=== PATIENT | male | born 1965 | race Caucasian/White ===

== ENCOUNTER 2023-07-31 08:21 | Inpatient (IN) | payer MEDICAID ==
[2023-07-31] VITALS (9 sets, daily range): BP systolic 128–160; BP diastolic 60–81; PULSE 59–79; RESP 13–22; TEMP 98–98.8
[~2023-07-31] VITALS: Ht 180.3 cm; Wt 149.8 kg
[2023-07-31] MEDS ORDERED: AMLO5TAB88 PO (09:43)
[2023-07-31] MEDS ORDERED: TIOT4MIS2 IH (09:43)
[2023-07-31] MEDS ORDERED: ASPI-1497 PO (09:43)
[2023-07-31] MEDS ORDERED: ATOR-2 PO (09:43)
[2023-07-31] MEDS ORDERED: IPRA4AER IH (09:43)
[2023-07-31] MEDS ORDERED: LIDOCAINE HCL 1% 10 MG/ML 10ML VIAL ONE (10:14)
[2023-07-31] MEDS ORDERED: HEPARIN 1000 UNITS/ML 10ML ONE ×2 (10:14→11:25)
[2023-07-31] MEDS ORDERED: IODIXANOL 320MG/ML 100 ML BOTTLE IV ONE ×2 (10:14→11:50)
[2023-07-31] MEDS ORDERED: FENTANYL CITRATE/PF 50MCG/ML 2ML VIAL ONE (10:50)
[2023-07-31] MEDS ORDERED: MIDAZOLAM HCL 2 MG/2 ML VIAL ONE (10:50)
[2023-07-31] MEDS ORDERED: CLOPIDOGREL 75MG TABLET ONE (11:51)
[2023-07-31] MEDS ORDERED: ASPIRIN 325MG TABLET ONE (11:51)
[2023-07-31] MEDS ORDERED: ACETAMINOPHEN 325MG TABLET PO PRN (12:15)
[2023-07-31] MEDS ORDERED: ATROPINE SULFATE 1MG/10ML SYR IV PRN (12:15)
[2023-07-31] MEDS ORDERED: ONDANSETRON HCL 4MG/2ML INJ IV PRN (12:15)
[2023-07-31] MEDS: AMLODIPINE 5MG TABLET PO SCH (15:33)
[2023-07-31] MEDS ORDERED: ATORVASTATIN CALCIUM 20MG TABLET PO SCH (21:00)
[2023-08-01] VITALS: BP 143/74; PULSE 71; RESP 17; TEMP 98
[2023-08-01 04:00] VITALS: BP 158/81; PULSE 72; RESP 15; TEMP 98.2
[2023-08-01] MEDS ORDERED: HYDRALAZINE 20MG/ML VIAL IV PRN (07:00)
[2023-08-01 08:00] VITALS: BP 134/81; PULSE 77; RESP 19; TEMP 97.8
[2023-08-01] MEDS: AMLODIPINE 5MG TABLET PO SCH (08:11)
[2023-08-01 08:28] LABS: BASOPHILS % 0.5 % (0.0-2.0); EOSINOPHILS % 5.3 % (0.0-5.0); HEMATOCRIT. 42.6 % (42.0-52.0); HEMOGLOBIN. 14.5 g/dL (14.0-18.0); LYMPHOCYTES % 20.7 % (20.0-50.0); MEAN CORPUSCULAR HEMOGLOBIN 30.6 pg (28.0-32.0); MEAN CORPUSCULAR VOLUME 89.9 fL (80.0-94.0); MEAN PLATELET VOLUME 8.3 fl (7.4-10.4); MONOCYTES % 6.3 % (2.0-8.0); NEUTROPHILS % 67.2 % (40.0-76.0); PLATELET 255 x1000/uL (130-400); RED BLOOD CELL COUNT 4.74 mill/uL (4.7-6.1); RED CELL DISTRIBUTION WIDTH 13.6 % (11.6-14.6); WHITE BLOOD COUNT 9.6 x1000/uL (4.5-11.0)
[2023-08-01] MEDS ORDERED: ASPIRIN 325MG TABLET PO SCH (09:00)
[2023-08-01] MEDS ORDERED: CLOPIDOGREL 75MG TABLET PO SCH (09:00)
[2023-08-01 09:16] LABS: INDEX HEMOLYSI 1 (1-3); INDEX ICTERIC 1 (1-4); INDEX LIPEMIC 1 (1-3)
[2023-08-01 09:17] LABS: CALCIUM 8.7 mg/dL (8.5-10.1); CHLORIDE 106 mEq/L (98-107); POTASSIUM 3.9 mEq/L (3.5-5.1); SODIUM 140 mEq/L (136-145)
[2023-08-01 09:21] LABS: CARBON DIOXIDE 30 mEq/L (21-32); CREATININE 0.9 mg/dL (0.6-1.3); GLUCOSE 103 mg/dL (70-105); UREA NITROGEN BLOOD 14 mg/dL (7-21)
[2023-08-01 12:00] VITALS: BP 139/70; PULSE 67; RESP 15; TEMP 97.8
[2023-08-01 12:37] VITALS: BP 139/70; PULSE 84; TEMP 97.8; O2SAT 97
== END 2023-08-01 13:30 | disposition home or self-care (01) | DRG 175 ==
LOC: CCL 08:21 → 3WST 12:28
PROVIDERS: ADMIT Specialist; ATTEND Specialist
PROC: 027036Z Dilation of Coronary Artery, One Artery with Three Drug-eluting Intraluminal Devices, Percutaneous Approach (ICD-10-PCS; principal; 2023-07-31)
PROC: 4A023N7 Measurement of Cardiac Sampling and Pressure, Left Heart, Percutaneous Approach (ICD-10-PCS; 2023-07-31)
PROC: B211YZZ Fluoroscopy of Multiple Coronary Arteries using Other Contrast (ICD-10-PCS; 2023-07-31)
PROC: B215YZZ Fluoroscopy of Left Heart using Other Contrast (ICD-10-PCS; 2023-07-31)
DX: I25.10 Atherosclerotic heart disease of native coronary artery without angina pectoris (principal); I11.0 Hypertensive heart disease with heart failure; I50.32 Chronic diastolic (congestive) heart failure; E66.9 Obesity, unspecified; I45.10 Unspecified right bundle-branch block; E78.5 Hyperlipidemia, unspecified; Z98.61 Coronary angioplasty status; Z68.42 Body mass index [BMI] 45.0-49.9, adult; Z79.82 Long term (current) use of aspirin; Z79.899 Other long term (current) drug therapy; Z87.891 Personal history of nicotine dependence
CPT/HCPCS: 36415; 80048; 83735; 85025; 85347; 93005; J1644; J2250; J3010; J3490; Q9967